=== PATIENT | male | born 1950 | race Caucasian/White ===

== ENCOUNTER → 2016-05-19 | Outpatient (CLI) | payer MEDICARE, BC ==
[~2016-05-19] MED LIST: CRESTOR20 MG PO; JANUMET XR 50-1 EACH PO; NITROSTAT0.4 MG PO
[2016-05-19 19:17] LABS: BASOPHIL # 0.1 K/uL (0.0-0.2); BASOPHIL % 0.8 %; EOSINOPHIL # 0.1 K/uL (0.0-0.5); EOSINOPHIL % 1.9 %; HEMATOCRIT 38.1 % (37.0-53.0); HEMOGLOBIN 13.1 g/dL (11.0-16.0); IMMATURE GRANULOCYTE % 0.4 %; LYMPHOCYTE # 1.9 K/uL (0.8-4.0); LYMPHOCYTE % 26.2 %; MCHC 34.4 gm/dL (32.0-36.5); MCV 84.5 fl (83.0-98.0); MONOCYTE # 0.5 K/uL (0.0-1.0); MONOCYTE % 6.9 %; MPV 9.3 fl (9.4-12.4); NEUTROPHIL # (ANC) 4.7 K/uL (1.4-9.0); NEUTROPHIL % 63.8 %; NRBC % 0 /100WBC (0-0.00); PLATELET COUNT 201 K/uL (150-450); RBC 4.51 M/uL (3.50-5.50); RDW-CV 13.9 % (11.9-14.6); WBC 7.4 K/uL (4.0-11.0)
[2016-05-19 19:38] LABS: ALBUMIN 3.8 gm/dL (3.5-5.0); ALK PHOS 75 IU/L (33-138); ALT 39 IU/L (12-78); ANION GAP 19.2 (10.0-19.0); AST 19 IU/L (10-40); BLOOD UREA NITROGEN 16 mg/dL (6-24); CALCIUM 8.9 mg/dL (8.5-10.5); CHLORIDE 100 mMol/L (96-110); CO2 21 mMol/L (22-32); CREATININE 1.2 mg/dL (0.6-1.3); ESTIMATED GFR (MDRD EQUATION) > 60; POTASSIUM 4.2 mMol/L (3.7-5.1); SODIUM 136 mMol/L (135-145); TOTAL BILIRUBIN 0.2 mg/dL (0.0-1.5); TOTAL PROTEIN 7.2 g/dL (6.0-8.4)
== END | disposition disaster alternative care site (69) ==
LOC: LNHI 19:11
PROVIDERS: Internal Medicine Cardiovascular Disease
DX: I25.10 Atherosclerotic heart disease of native coronary artery without angina pectoris (principal); I25.5 Ischemic cardiomyopathy

== ENCOUNTER → 2016-06-08 | Outpatient (CLI) | payer MEDICARE, BC | END | disposition disaster alternative care site (69) | LOC: GRAD 10:59 | DX: R68.81 Early satiety (principal); E11.9 Type 2 diabetes mellitus without complications; R93.3 Abnormal findings on diagnostic imaging of other parts of digestive tract | CPT/HCPCS: A9541 ==